=== PATIENT | female | born 1975 | race Asian ===

== ENCOUNTER 2017-06-09 07:16 | Emergency (ER) | payer BC ==
[~2017-06-09] VITALS: Ht 154.9 cm; Wt 62.0 kg
[2017-06-09 07:20] VITALS: Ht 154.9 cm; Wt 62.0 kg
[2017-06-09] MEDS ORDERED: IBUPROFEN 800 MG TAB PO ONE (08:30)
--- NOTE | 2017-06-09 08:56 | ERD ---
ER Documentation Chief Complaint Date/Time DATE: 06/09/17 TIME: 08:52 Chief Complaint pt bib self with c/o sore thoat for a few days, son had strep last wk HPI This 42-year-old female who presents the emergency department today complaining of sore throat, body aches, some nasal congestion for the past 2-3 days. 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 States she is concerned because her son had strep throat last week. Denies any fevers or chills. Denies any cough.. She has not yet had her flu shot. ROS All systems reviewed and are negative except as per history of present illness. Medications Home Meds Active Scripts Cetirizine Hcl* (Zyrtec*) 10 Mg Capsule, 10 MG PO DAILY, #14 TAB.CHEW Prov:TANJA MONTOYA PA-C 06/09/17 Acetaminophen* (Tylophen*) 500 Mg Capsule, 1 CAP PO Q6H Y for PAIN AND OR ELEVATED TEMP, #30 CAP Prov:TANJA MONTOYA PA-C 06/09/17 Ibuprofen* (Motrin*) 800 Mg Tab, 800 MG PO Q6, #30 TAB Prov:TANJA MONTOYA PA-C 06/09/17 Allergies Allergies: Coded Allergies: clindamycin (Verified Allergy, Mild, 06/09/17) PMhx/Soc History of Surgery: No Anesthesia Reaction: No Hx Neurological Disorder: No Hx Cardiac Disorders: Yes (htn ) Hx Psychiatric Problems: No Hx Miscellaneous Medical Probl: Yes (anemia ) Hx Alcohol Use: No Hx Substance Use: No Hx Tobacco Use: No Smoking Status: Never smoker Physical Exam Vitals Vital Signs Date Time Temp Pulse Resp B/P Pulse Ox O2 Delivery O2 Flow Rate FiO2 06/09/17 07:20 99.2 103 16 146/78 98 Physical Exam Const: NAD Head: Atraumatic Eyes: Normal Conjunctiva ENT: TMs normal. Nose no drainage. Throat erythema no exudate no vesicles. Mild drainage posterior pharynx. Neck: Full range of motion..~ No meningismus. Resp: Clear to auscultation bilaterally Cardio: Regular rate and rhythm, no murmurs Abd: Soft, non tender, non distended. Normal bowel sounds Skin: No petechiae or rashes Neur: Awake and alert Psych: Normal Mood and Affect Results 24 hrs Current Medications Medications (Trade) Dose Ordered Sig/Brook Route PRN Reason Start Time Stop Time Status Last Admin Dose Admin Ibuprofen (Motrin) 800 mg ONCE ONCE PO 06/09/17 08:30 06/09/17 08:31 DC 06/09/17 08:28 RUN DATE: 06/09/17 [facility] PAGE 1 RUN TIME: [id number] [place] [address] Dayron Ojeda M.D. Drying Machine Operator SHA#: [id number] Name: GAVINO BACA Age/Sex: 42/F Attend Dr: SIMONE GARCIA DO Acct: [id number] MR# : [id number] : 1975 Location: [facility] Admit: 06/09/17 Specimen: [id number] Status: Complete Sean: 06/09/17 Rcvd: 06/09 Source: [facility] Descrip: Procedure Result Microbiology INFLUENZA A & B BY EIA Final INFLU A&B BY EIA INFLUENZA A NEGATIVE (Ref Range Neg) INFLUENZA B NEGATIVE (Ref Range Neg) ................................................................................ ............ Flags: Critical Hi = *H Critical Lo = *L Microbiology Abnormal = * Abnormal Hi = H Abnormal Lo = L Blood Bank Abnormal = * Susceptability Flags: S = Sensitive R = Resistant I = Intermediate END OF REPORT RUN DATE: 06/09/17 [facility] PAGE 1 RUN TIME: [id number] [place] [address] Dayron Ojeda M.D. Drying Machine Operator SHA#: [id number] Name: GAVINO BACA Age/Sex: 42/F Attend Dr: SIMONE GARCIA DO Acct: [id number] MR# : [id number] : 1975 Location: [facility] Admit: 06/09/17 Specimen: [id number] Status: Complete Sean: 06/09/17 Rcvd: 06/09 Source: THROAT Sp Descrip: Procedure Result Microbiology RAPID STREP ANTIGEN BY EIA Final RAPID STREP ANTIGEN ,EIA NEGATIVE (Ref Range Neg) ................................................................................ ............ Flags: Critical Hi = *H Critical Lo = *L Microbiology Abnormal = * Abnormal Hi = H Abnormal Lo = L Blood Bank Abnormal = * Susceptability Flags: S = Sensitive R = Resistant I = Intermediate END OF REPORT Procedures/MDM This 42-year-old female who presents the emergency department today complaining of some body aches and sore throat for the past couple of days. Patient was concerned as her son recently was diagnosed with strep throat. Patient is a nurse here in the NICU. Given patient's complaints I did do a strep test and influenza test. Influenza a and B is negative Rapid strep antigen A is negative Patient has no tonsillar exudate fever and I do not feel that she should be treated prophylactically for strep throat especially given her negative strep test. Symptoms at this time is consistent with sore throat and URI likely viral. Patient did have some drainage in her posterior pharynx reduce feel she may benefit from Zyrtec.. Patient was given Motrin here in the emergency department as she did not want something stronger. She will be given a prescription for Tylenol Motrin for home. I did give the patient a work note. At this time the patient is stable for discharge and outpatient management. Patient should follow up with their PCP in the next 1-2 days. They may return to the emergency department sooner for any persistent or worsening of symptoms. Patient understood and agreed with the plan. Departure Diagnosis: Primary Impression: Sore throat Condition: TANJA Wang PA-C Jun 09, 2017 08:56
[2017-06-09] MEDS ORDERED: ACET500C5 PO (08:59)
[2017-06-09] MEDS ORDERED: IBUP800T25 PO (08:59)
[2017-06-09] MEDS ORDERED: CETI10CA PO (09:00)
[2017-06-09 09:08] VITALS: BP 123/73; PULSE 86; RESP 20; TEMP 99.3
== END 2017-06-09 09:09 | disposition home or self-care (01) ==
LOC: FTE 07:16
DX: J02.9 Acute pharyngitis, unspecified (principal); I10 Essential (primary) hypertension
CPT/HCPCS: 87400; 87880; 99283

== ENCOUNTER 2018-01-13 18:44 | Emergency (ER) | END 2018-01-13 20:30 | disposition home or self-care (01) ==